=== PATIENT | male | born 2000 | race Caucasian/White ===

== ENCOUNTER 2024-07-15 12:16 | Emergency (ER) | payer MEDICAID, OTHER ==
[~2024-07-15] VITALS: Ht 172.7 cm; Wt 106.8 kg
[2024-07-15 12:23] VITALS: O2SAT 97
[2024-07-15] MEDS: BACITRACIN ZINC OINT UDPKT TOP ONE (13:26)
[2024-07-15] MEDS: TETANUS, DIPHTHERIA, PERTUSSIS VAC/PF 0.5ML (>10YR OLD) IM ONE (13:27)
[2024-07-15] MEDS: LIDOCAINE HCL/PF 1% 10 MG/ML 5ML VIAL INFIL ONE (13:39)
[2024-07-15] MEDS ORDERED: BO1 TP (13:53)
[2024-07-15 14:15] VITALS: BP 131/79; PULSE 70; RESP 16; TEMP 36.7; O2SAT 98
== END 2024-07-15 14:21 | disposition home or self-care (01) ==
LOC: ER 12:16
DX: S91.012A Laceration without foreign body, left ankle, initial encounter (principal); W18.2XXA Fall in (into) shower or empty bathtub, initial encounter; Y93.E1 Activity, personal bathing and showering; Y93.89 Activity, other specified; Y92.89 Other specified places as the place of occurrence of the external cause; Y99.8 Other external cause status
CPT/HCPCS: 90715; 12002; 90471; 99283; J2003; Z7610 ×2

== ENCOUNTER 2024-08-01 16:22 | Emergency (ER) | payer MEDICAID ==
[~2024-08-01] VITALS: Ht 175.3 cm; Wt 108.9 kg
[~2024-08-01 16:22] MED LIST: BO1 TP
[2024-08-01 16:29] VITALS: O2SAT 100
[2024-08-01 17:51] VITALS: BP 143/83; PULSE 98; RESP 16; TEMP 36.7; O2SAT 100
== END 2024-08-01 18:07 | disposition home or self-care (01) ==
LOC: ER 16:22
DX: S91.012D Laceration without foreign body, left ankle, subsequent encounter (principal); X58.XXXD Exposure to other specified factors, subsequent encounter
CPT/HCPCS: 99281